=== PATIENT | female | born 1975 | race Caucasian/White ===

== ENCOUNTER 2017-02-27 12:24 | Emergency (ER) | payer OTHER ==
[~2017-02-27 12:24] MED LIST: ALBUTEROL5 INH; ASAB PO; AT10 PO; ATEN50 PO; BRILINTA90 MG PO; CAT1 PO; CAT2 PO; CELEXA20 PO; CELEXA40 MG PO; COZAAR100 MG PO; DOLOPHINE10 MG PO; DULERA 100 MCG/13 GM INH; EFFEX75 PO; EMLA TOP; FLEX PO; HCTZ50B PO; HYDROCHLOROT25 MG PO; HYZAAR 100/25 T1 TAB PO; IMDUR30 PO; L40 PO; LOP100 PO; LORTAB 5 PO; NEUR300 PO; NIFEDIAC CC60 MG PO; NITROSTAT0.4 MG SL; NORCO1 TAB PO; NORV10 PO; OXYCOD PO; PLAVIX PO; PR25 PO; PRAV10 PO; PRAVACHOL40 MG PO; PRILO PO; PROAIR HFA PO; PROVENTIL; PROVENTSOL INH; PROVHFA INH; REST15 PO; SPIRIVA INH; STERAPRED5 MG PO; STEROID INJECTION IM/SC; TOPXL100 PO; TOPXL50 PO; ULTRAM50 PO; VALIUM10 MG PO; ZANTAC 150 PO; [UNRECOGNIZED DRUG - OTHER] PO
== END 2017-02-27 12:33 | disposition home or self-care (01) ==
LOC: ER 12:24
PROC: 0H92XZZ Drainage of Right Ear Skin, External Approach (ICD-10-PCS; principal; 2017-02-27)
DX: H66.001 Acute suppurative otitis media without spontaneous rupture of ear drum, right ear (principal); I10 Essential (primary) hypertension; F17.200 Nicotine dependence, unspecified, uncomplicated; Z79.82 Long term (current) use of aspirin; Z79.899 Other long term (current) drug therapy
CPT/HCPCS: 99283

== ENCOUNTER 2017-03-16 19:36 | Emergency (ER) | payer OTHER | END 2017-03-16 21:22 | disposition home or self-care (01) | LOC: ER 19:36 | DX: H61.121 Hematoma of pinna, right ear (principal); I11.0 Hypertensive heart disease with heart failure; I50.9 Heart failure, unspecified; J44.9 Chronic obstructive pulmonary disease, unspecified; K21.9 Gastro-esophageal reflux disease without esophagitis; F32.9 Major depressive disorder, single episode, unspecified; F41.9 Anxiety disorder, unspecified; F17.200 Nicotine dependence, unspecified, uncomplicated; Z86.718 Personal history of other venous thrombosis and embolism; Z95.5 Presence of coronary angioplasty implant and graft; Z79.82 Long term (current) use of aspirin; Z79.899 Other long term (current) drug therapy | CPT/HCPCS: 99282 ==